=== PATIENT | female | born 1970 | race Caucasian/White ===

== ENCOUNTER 2023-02-13 04:04 | Day surgery (SDC) | payer OTHER ==
[2023-02-08 15:37] VITALS: BMI 23.6
[2023-02-13 10:49] LABS: EOS % 1.7 % (0-4.5); HEMATOCRIT 35.4 % (32.4-45.2); LYMPH % 34.8 % (8-40); MCH 30.3 pg (25.7-33.7); MCHC 33.8 g/dl (32.0-36.0); MEAN CELL VOLUME 89.7 fl (80-96); MEAN PLT VOLUME 8.5 fl (7.5-11.1); MONO % 7.5 % (3.8-10.2); PLATELET COUNT 223 10^3/uL (134-434); RBC 3.95 M/mm3 (3.60-5.2); RDW 13.3 % (11.6-15.6); WHITE BLOOD COUNT 4.4 K/mm3 (4.0-10.0)
[2023-02-13 11:03] LABS: POTASSIUM 4.3 mmol/L (3.5-5.1)
[2023-02-13 11:05] LABS: ALBUMIN 3.6 g/dl (3.4-5.0); BLOOD UREA NITROGEN 17.2 mg/dL (7-18); CALCIUM 9.2 mg/dL (8.5-10.1)
[2023-02-13 11:08] LABS: CREATININE 0.6 mg/dL (0.55-1.3)
[2023-02-13 11:10] LABS: BILIRUBIN,TOTAL 0.8 mg/dL (0.2-1); TOT PROT 6.9 g/dl (6.4-8.2)
[2023-02-13] MEDS ORDERED: ONDANSETRON 4 MG/2 ML VIAL ONE (11:39)
[2023-02-13] MEDS ORDERED: MIDAZOLAM HCL 2 MG/2 ML SINGLE DOSE VIAL ONE (11:49)
[2023-02-13 14:30] VITALS: RESP 20
[2023-02-13 15:47] VITALS: BP 110/68; PULSE 72; TEMP 97.7
== END 2023-02-13 16:00 | disposition home or self-care (01) ==
LOC: JASU-SURG 04:04
PROVIDERS: ATTEND Obstetrics & Gynecology
PROC: 0UDB8ZZ Extraction of Endometrium, Via Natural or Artificial Opening Endoscopic (ICD-10-PCS; principal; 2023-02-13 12:00)
DX: N95.0 Postmenopausal bleeding (principal)
CPT/HCPCS: 36415; 80053; 81025; 85025; 86850; 86900; 86901; 88305-TC; 94760